=== PATIENT | male | born 1955 | race Caucasian/White ===

== ENCOUNTER → 2023-02-12 | Outpatient (CLI) | payer MEDICARE ==
--- NOTE | 2023-02-12 11:29 | Diagnostic Imaging Report ---
PROCEDURE: MRI lumbar spine. TECHNIQUE: Multiplanar, multisequence MRI of the lumbar spine was performed without contrast. INDICATION: Chronic low back pain. COMPARISON: None FINDINGS: There are 5 lumbar-type vertebral bodies for the purposes of this report. Normal alignment. Vertebral body heights are preserved. Normal bone marrow signal. No abnormal signal in the conus which terminates at L1. Normal morphology of the cauda equina. The visualized pelvis and paravertebral soft tissues are unremarkable. L1-L2: No spinal canal, lateral recess or neural foraminal narrowing. L2-L3: No spinal canal, lateral recess or neural foraminal narrowing. L3-L4: Broad-based disc bulging, ligamentous hypertrophy and facet arthropathy result in severe bilateral lateral recess narrowing. Mild spinal canal narrowing. Mild bilateral neural foraminal narrowing. L4-L5: Central disc protrusion, ligamentous hypertrophy and facet arthropathy result in moderate to severe bilateral lateral recess narrowing. Mild bilateral neural foraminal narrowing. Mild spinal canal narrowing. L5-S1: Central disc protrusion results in moderate left lateral recess narrowing. Mild spinal canal narrowing. Mild bilateral neural foraminal narrowing. IMPRESSION: 1. 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 2. No high-grade spinal canal stenosis. 3. No acute osseous findings. Dictated by: Dictated on workstation # [id number]
== END ==
LOC: RAD 08:58
PROVIDERS: ATTEND Pediatrics
DX: M51.26 Other intervertebral disc displacement, lumbar region (principal); M47.814 Spondylosis without myelopathy or radiculopathy, thoracic region; M24.28 Disorder of ligament, vertebrae; M48.061 Spinal stenosis, lumbar region without neurogenic claudication; M51.37 Other intervertebral disc degeneration, lumbosacral region; M48.07 Spinal stenosis, lumbosacral region
CPT/HCPCS: 72148

== ENCOUNTER → 2023-05-07 | Outpatient (CLI) | payer MEDICARE, OTHER ==
--- NOTE | 2023-05-07 14:41 | Diagnostic Imaging Report ---
EXAMINATION: Right hip unilateral 2 or 3 views (w/pelvis when done) HISTORY: Hip pain COMPARISON: None available. FINDINGS: There is mild right hip osteoarthritis. No fracture. No dislocation. Alignment is normal. IMPRESSION: 1. Mild right hip osteoporosis. Dictated by: Dictated on workstation # [id number]
== END ==
LOC: RAD 11:24
PROVIDERS: ATTEND Nurse Practitioner
DX: M54.16 Radiculopathy, lumbar region (principal); M53.3 Sacrococcygeal disorders, not elsewhere classified; M81.0 Age-related osteoporosis without current pathological fracture

== ENCOUNTER 2023-08-02 10:00 | Outpatient (CLI) | payer MEDICARE, OTHER ==
[~2023-08-02] VITALS: Ht 172.7 cm; Wt 106.6 kg
== END 2023-08-05 09:18 | disposition home or self-care (01) ==
LOC: PREOP 10:00
PROVIDERS: ATTEND Specialist
DX: Z01.818 Encounter for other preprocedural examination (principal)

== ENCOUNTER 2023-08-09 08:00 | Day surgery (SDC) | payer MEDICARE, OTHER ==
[~2023-08-09] VITALS: Ht 172.7 cm; Wt 106.6 kg
[2023-08-09] MEDS: TETRACAINE 0.5% OPHTH SOLN 5 ML BTL OU PRN ×2 (08:25→08:35)
[2023-08-09] MEDS: TROPICAMIDE 1% OPH SOLN (MYDRIACYL) 15 ML BTL OU PRN ×2 (08:28→08:35)
[2023-08-09] MEDS: PHENYLEPHRINE 10% OPHTH SOLN 5 ML BTL OU PRN ×2 (08:28→08:35)
[2023-08-09 08:32] VITALS: BP 148/78
--- NOTE | 2023-08-09 09:29 | Ophthalmologist Pre-Op Note ---
Pre-Operative Progress Note H&P Reviewed The H&P was reviewed, patient examined and no changes noted. Date H&P Reviewed: Aug 09, 2023 Time H&P Reviewed: 09:05 Pre-Op Dx Secondary Cataract, Right Eye JADYN AGUDELO MD Aug 09, 2023 09:29
--- NOTE | 2023-08-09 09:30 | Ophthalmology Operative Report ---
YAG Capsulotomy PREOPERATIVE DIAGNOSIS: Secondary Cataract Left Eye POSTOPERATIVE DIAGNOSIS: Secondary Cataract Left Eye PROCEDURE: YAG Capsulotomy, left eye SURGEON: Bryson Agudelo ANESTHESIA: Topical anesthesia COMPLICATIONS: None ESTIMATED BLOOD LOSS: Minimal DESCRIPTION OF PROCEDURE: After proper informed consent was obtained, the patient's, a 67 male left eye received one drop of Tropicamide and one drop of Tetracaine. The patient was then placed at the YAG laser and using a power of [4.0] millijoules and [ 19] bursts were used to fashion a central capsulotomy. The patient tolerated the procedure well without complications. BRYSON AGUDELO MD Aug 09, 2023 09:30
== END 2023-08-09 09:17 ==
LOC: SDC 08:00
PROVIDERS: ATTEND Specialist
DX: H26.492 Other secondary cataract, left eye (principal); F17.220 Nicotine dependence, chewing tobacco, uncomplicated